=== PATIENT | male | born 1980 | race Caucasian/White ===

== ENCOUNTER 2018-05-15 05:35 | Inpatient (IN) | payer OTHER ==
[~2018-05-15] VITALS: Ht 190.5 cm; Wt 173.7 kg
[2018-05-15] VITALS (10 sets, daily range): BP systolic 112–155; BP diastolic 65–84
[~2018-05-15 05:35] MED LIST: AUGMENTIN 875875 MG PO; PREDNISONE 20 M20 M1 PO; PROTONIX40 M1 PO
[2018-05-15 06:40] LABS: ABSOLUTE BASOPHILS 0.1 thou/uL (0.0-0.2); ABSOLUTE EOSINOPHILS 0.4 thou/uL (0.0-0.7); ABSOLUTE LYMPHOCYTES 3.6 thou/uL (0.8-5.3); ABSOLUTE MONOCYTES 0.7 thou/uL (0.0-1.2); ABSOLUTE NEUTROPHILS 5.2 thou/uL (1.6-8.1); BASOPHILS 0.9 %; EOSINOPHILS 4.2 %; HEMATOCRIT 45.7 % (42.0-52.0); HEMOGLOBIN 15.2 gm/dL (14.0-18.0); MCH 28.4 pg (26.0-34.0); MCHC 33.4 g/dL (28.0-37.0); MCV 85.1 fL (80.0-100.0); MONOCYTES 6.9 %; MPV 6.3 fl. (7.2-11.1); NUCLEATED RBCS 0 /100WBC; PLATELET COUNT* 350 thou/uL (150-400); RBC 5.37 mil/uL (4.50-6.00); RDW-CV 14.6 % (10.5-14.5); WBC 10.1 thou/uL (4.0-11.0)
[2018-05-15 06:54] LABS: PROTIME 10.1 Seconds (9.20-11.50)
[2018-05-15 06:58] LABS: ALBUMIN 3.6 g/dL (3.4-5.0); CALCIUM 9.8 mg/dL (8.5-10.1); POTASSIUM 3.2 mmol/L (3.5-5.1); TOTAL BILIRUBIN 0.4 mg/dL (<0.1-1.0); TOTAL PROTEIN 7.7 g/dL (6.4-8.2)
[2018-05-15 20:22] LABS: MAGNESIUM 1.9 mg/dL (1.8-2.4); POTASSIUM 4.5 mmol/L (3.5-5.1)
[2018-05-16] VITALS (7 sets, daily range): BP systolic 119–139; BP diastolic 66–82
[2018-05-16 04:43] LABS: HEMATOCRIT 45.3 % (42.0-52.0); HEMOGLOBIN 14.8 gm/dL (14.0-18.0); MCH 28.4 pg (26.0-34.0); MCHC 32.7 g/dL (28.0-37.0); MCV 86.6 fL (80.0-100.0); MPV 6.5 fl. (7.2-11.1); NUCLEATED RBCS 0 /100WBC; PLATELET COUNT* 297 thou/uL (150-400); RBC 5.23 mil/uL (4.50-6.00); RDW-CV 14.6 % (10.5-14.5); WBC 12.1 thou/uL (4.0-11.0)
[2018-05-16 04:56] LABS: ALBUMIN 3.5 g/dL (3.4-5.0); CALCIUM 9.7 mg/dL (8.5-10.1); POTASSIUM 4.6 mmol/L (3.5-5.1); TOTAL BILIRUBIN 0.6 mg/dL (<0.1-1.0); TOTAL PROTEIN 7.6 g/dL (6.4-8.2)
[2018-05-16 06:50] LABS: ABSOLUTE LYMPHOCYTES 0.8 thou/uL (0.8-5.3); ABSOLUTE MONOCYTES 0.4 thou/uL (0.0-1.2); ABSOLUTE NEUTROPHILS 10.9 thou/uL (1.6-8.1); ANISOCYTOSIS 1+; PLATELET ESTIMATE ADEQUATE; POIKILOCYTOSIS 1+
[2018-05-16] MEDS ORDERED: PREDNISONE 20 M20 MG PO (10:23)
[2018-05-16] MEDS ORDERED: BENADRYL25 MG PO (10:29)
== END 2018-05-16 11:45 | disposition home or self-care (01) | DRG 915 ==
LOC: M.ERS 05:35 → M.ICU 06:37 → M.TBA-ER 06:37 → M.ICU 10:06
PROVIDERS: Family Medicine; ADMIT Internal Medicine
DX: T78.3XXA Angioneurotic edema, initial encounter (principal); J96.00 Acute respiratory failure, unspecified whether with hypoxia or hypercapnia; E87.6 Hypokalemia; K21.9 Gastro-esophageal reflux disease without esophagitis; Z79.899 Other long term (current) drug therapy; Z91.018 Allergy to other foods

== ENCOUNTER 2020-05-04 03:04 | Observation (INO) | payer OTHER ==
[~2020-05-04] VITALS: Ht 190.5 cm; Wt 187.3 kg
--- NOTE | ~2020-05-04 | OP ---
[address] [address] OPERATIVE REPORT Name: GABY MCKEON Room: [address] Fina MMarcela#: [id number] Admission: 05/04/20 Attend Phys: Odette Jackman Discharge: 05/04/20 Date of : 76 Report #: [id number] THIS REPORT FOR: cc: Domingo Castro James E DO ~ Haggard, Kent L MD DATE OF SERVICE: 05/04/2020 PREOPERATIVE DIAGNOSIS: A 5 mm proximal right ureteral stone and a 3 mm nonobstructing right mid pole stone. POSTOPERATIVE DIAGNOSIS: A 5 mm proximal right ureteral stone and a 3 mm nonobstructing right mid pole stone. PROCEDURE: Cystoscopy, right retrograde pyelogram, right ureteral stent placement. STAFF SURGEON: Campbell Sol MD AGRONOMIST: None. ANESTHESIA: General. ESTIMATED BLOOD LOSS: None. COMPLICATIONS: None. SPECIMENS: None. DRAINS: 30 cm 6-Salvadorean right ureteral stent. INDICATIONS: The patient is a 39-year-old white male with no prior personal or family history of kidney stones, presented yesterday morning around 4:00 a.m. with some right sided pain. He got up and he stated he did some stretching and went to the bathroom and kind of felt better about 1:00 a.m. this morning, his pain, it was 10 times worse in the right flank. He presented to [facility] where a CT scan confirmed a 5 mm proximal ureteral stone. Given the amount of pain, he was admitted. We were consulted to assist and manage evaluation. He was counseled regarding treatment options, elected for definitive cystoscopy, right retrograde pyelogram and right ureteral stent placement, possible ureteroscopy. After the risks and benefits of the procedure explained, informed consent was obtained. DESCRIPTION OF PROCEDURE: The patient was taken to the operating room comfortably placed in the dorsal lithotomy [place] [address] OPERATIVE REPORT Name: LINDAGABY PILO Room: [address] Jos#: [id number] Admission: 05/04/20 Attend Phys: Odette Jackman Discharge: 05/04/20 Date of : 76 Report #: [id number] anesthesia. He was sterilely prepped and draped in standard fashion exposing only the genitalia. He received antibiotic therapy as prescribed. Two grams of intravenous Ancef. Appropriate timeout was carried out and all were in agreement. A 22-Salvadorean cystoscope with 30-degree angle lens was put in place. Anterior urethra was normal. Sphincter is intact. Prostate showed some bilobar prostatic hyperplasia, elevated bladder neck. The bladder was surveyed. Both ureteral orifices were identified with a patulous particularly on the right side. Mild trabeculation of the bladder wall. No mucosal irregularity or stone was identified, just stone debris identified. An 8-Salvadorean cone tip catheter passed into the right orifice and a retrograde pyelogram performed showing the narrow caliber ureter all the way up the back in the proximal ureter corresponding to the stone seen on CT scan. A 0.035 Glidewire was manipulated up the right ureter to the left kidney. It kind of a bifid kidney. No real renal pelvis was identified. A 0.035 Glidewire advanced up the right ureter into the mid pole calyx. A 30 cm x 6-Salvadorean ureteral stent was put in place. I got 30 cm x 6-Salvadorean contour stent was put in place and noted to have a room for complete coil in the renal pelvis so at the tip of the stent kind of coiled over the tip was in the lower pole. The guidewire was removed, good coil in the bladder. He tolerated the procedure extremely well. The bladder was drained, cystoscope was removed. He tolerated the procedure extremely well and was extubated in the operating room, transferred to [facility] with assistance and went to recovery in stable condition. Notified our office to try and get him as an outpatient procedure next week for cystoscopy, right stent removal, right ureteroscopy, possible holmium laser lithotripsy, possible replacement of right ureteral stent. By: [id number] Sol MD /jero
[~2020-05-04 03:04] MED LIST changes: +BENADRYL25 MG PO; +PREDNISONE 20 M20 MG PO
[2020-05-04 03:08] VITALS: BP 157/88
[2020-05-04 03:35] LABS: URINE BILIRUBIN NEGATIVE (Negative); URINE BLOOD 3+ (Negative); URINE CLARITY SL CLOUDY; URINE COLOR DARK YELLOW; URINE GLUCOSE-RANDOM NEGATIVE (Negative); URINE KETONES NEGATIVE (Negative); URINE LEUKOCYTES-REFLEX TRACE (Negative); URINE NITRITE-REFLEX NEGATIVE (Negative); URINE PROTEIN 1+ (Negative); URINE SPECIFIC GRAVITY >= 1.030 (1.005-1.030); URINE UROBILINOGEN 0.2 E.U./dl (0.2-1.0)
[2020-05-04 03:37] LABS: ABSOLUTE BASOPHILS 0.1 thou/uL (0.0-0.2); ABSOLUTE EOSINOPHILS 0.3 thou/uL (0.0-0.7); ABSOLUTE LYMPHOCYTES 2.1 thou/uL (0.8-5.3); ABSOLUTE MONOCYTES 0.6 thou/uL (0.0-1.2); ABSOLUTE NEUTROPHILS 4.4 thou/uL (1.6-8.1); BASOPHILS 0.8 %; EOSINOPHILS 3.5 %; HEMATOCRIT 45.4 % (42.0-52.0); LYMPHOCYTES 28.3 %; MCH 28.4 pg (26.0-34.0); MONOCYTES 7.8 %; MPV 6.6 fl. (7.2-11.1); NUCLEATED RBCS 0 /100WBC; PLATELET COUNT* 288 thou/uL (150-400); POLYS 59.6 %; RBC 5.28 mil/uL (4.50-6.00); RDW-CV 14.6 % (10.5-14.5); WBC 7.3 thou/uL (4.0-11.0)
[2020-05-04 03:42] LABS: CALCIUM 10.6 mg/dL (8.5-10.1); CREATININE 1.2 mg/dL (0.6-1.3); POTASSIUM 3.9 mmol/L (3.5-5.1)
[2020-05-04 04:48] LABS: CASTS None Seen /LPF (None Seen); MUCUS 0-3 Light strn/LPF (None Seen); SQUAMOUS 4-10 Moderate /LPF (0-3)
[2020-05-04 04:49] LABS: URINE WBC-REFLEX 0-5 Rare /HPF (0-5)
[2020-05-04 04:50] LABS: CRYSTALS None Seen /LPF (None Seen); URINE RBC >20 Many /HPF (0-2)
[2020-05-04 05:55] VITALS: BP 128/72
[2020-05-04 06:05] VITALS: BP 144/84
[2020-05-04 08:00] VITALS: BP 141/75; BP 144/84
[2020-05-04 11:58] LABS: CALCIUM 9.7 mg/dL (8.5-10.1); CREATININE 1.4 mg/dL (0.6-1.3)
[2020-05-04 12:03] LABS: PHOSPHORUS* 4.1 mg/dL (2.5-4.9)
[2020-05-04 12:11] LABS: POTASSIUM 4.6 mmol/L (3.5-5.1)
[2020-05-04 18:46] VITALS: BP 141/75
[2020-05-04 18:50] VITALS: BP 141/75
== END 2020-05-04 19:35 | disposition home or self-care (01) ==
LOC: M.ERS 03:04 → M.TBA-ER 05:21 → M.ORTHSURG 05:21
PROVIDERS: Emergency Medicine; ADMIT Internal Medicine; ATTEND Internal Medicine
DX: N13.2 Hydronephrosis with renal and ureteral calculous obstruction (principal); K21.9 Gastro-esophageal reflux disease without esophagitis; T78.3XXA Angioneurotic edema, initial encounter; E66.01 Morbid (severe) obesity due to excess calories; Z68.43 Body mass index [BMI] 50.0-59.9, adult; Z79.899 Other long term (current) drug therapy; Z20.822 Contact with and (suspected) exposure to COVID-19